=== PATIENT | male | born 1955 | race Caucasian/White ===

== ENCOUNTER 2016-08-26 09:39 | Day surgery (SDC) | payer BC ==
[~2016-08-26] VITALS: Ht 167.6 cm; Wt 70.0 kg
[2016-08-26 10:23] VITALS: Ht 167.6 cm; Wt 70.0 kg
[2016-08-26] MEDS ORDERED: PROPOFOL 60 ML ONE (10:30)
[2016-08-26] MEDS ORDERED: LIDOCAINE 2% (SDV) 5 ML INJ ONE (10:30)
[2016-08-26 10:45] VITALS: BP 133/85; PULSE 72; RESP 18
--- NOTE | 2016-08-26 11:41 | GILP ---
DATE OF PROCEDURE: PROCEDURE: EGD with biopsy and colonoscopy with polypectomy. INDICATION: A 60-year-old male undergoing this procedure for abdominal pain confined to the right u pper quadrant and epigastric area for the last 10 years, with a recent acute exacerbation. The purp ose of this procedure is to evaluate upper GI tract, lower GI tract, find out the cause of the sympt oms. INFORMED CONSENT: The risk of the procedure, related and unrelated complications, anesthetic risks, and alternatives discussed. Informed consent was obtained. DESCRIPTION OF PROCEDURE: The patient was brought to the GI lab, sedated by the anesthesiologist, Marco A Domínguez. After optimum sedation, scope was passed with much ease into esophagus, which was grossly within normal limits. Z line was at 40 cm. Stomach mucosa revealed erosive gastritis. Four biopsi es obtained randomly to rule out H. pylori. Duodenum, first and second part, including small ampull a appeared normal. Retroversion in the stomach was normal. Scope was straightened out and removed with good patient tolerance. IMPRESSION 1. Normal esophagus. 2. Z line at 40 cm, normal. 3. Erosive gastritis. 4. Normal duodenum and ampulla. Plan is to review histopathology. COLONOSCOPY: The patient was turned around, scope was passed with much ease into rectum, advanced t hrough sigmoid, descending, transverse colon all the way into cecum. There was liquidy stool aspira rasta as much as possible. After aspiration, in the cecum, there was a 1 cm polyp identified, success fully removed by cold snare technique. This polyp appeared somewhat sessile. There was another maria yp in the ascending colon which was flat, successfully removed by cold snare technique. It was 1 cm in diameter. The rest of the colon appeared normal except for the scattered diverticulosis, some o f them wide mouth. Retroflexion done, it was normal. Scope was straightened out and removed with g ood patient tolerance. IMPRESSION 1. Diverticulosis, mild to moderate degree, mostly in the left side of the colon. 2. Two polyps successfully removed from the right side of the colon, one from the cecum, one from t he ascending colon, both were 1 cm and removed by cold snare technique. 3. Normal retroversion. 4. Clarity was good. 5. Cleanliness was good to adequate. PLAN: Review histopathology. He needs colonoscopy next 5 years. Dictated By: YESSICA MARQUES/NICOL Conf#: [id number] DID#: [id number] CC: primary care physician;*EndCC*
[2016-08-26 11:50] VITALS: BP 131/83; PULSE 66; RESP 16
== END 2016-08-26 11:38 | disposition home or self-care (01) ==
LOC: GIL 09:39
PROVIDERS: ATTEND Internal Medicine Gastroenterology
DX: Z12.11 Encounter for screening for malignant neoplasm of colon (principal); D12.0 Benign neoplasm of cecum; K20.8 Other esophagitis; K57.90 Diverticulosis of intestine, part unspecified, without perforation or abscess without bleeding; D12.2 Benign neoplasm of ascending colon
CPT/HCPCS: 43239; 45380; 88305; 88312; Z7610